=== PATIENT | female | born 1980 | race Caucasian/White ===

== ENCOUNTER 2020-07-27 15:02 | Emergency (ER) | payer OTHER ==
[~2020-07-27] VITALS: Ht 157.4 cm; Wt 124.3 kg
[~2020-07-27 15:02] MED LIST: ALBUTEROL 3 ML 33 ML INH; ALBUTEROL0.09 MG/A2 IH; ALBUTEROL2.5 MG/0.5 INH; ANIMAL CHEWS1 EACH PO; ATROVENT I0.5 MG/2.5 INH; AUGMENTIN 875 M1 TAB PO; BACTROBAN OINT22 GM PO; CEFTIN500 MG PO; CIPRO500 MG PO; COMBIVENT1 ARO IH; CYCLOBENZAPRINE10 MG PO; DELTASONE10 MG PO; DOXYCYCLINE100 M3 PO; DULE1ARO INH; DULE1ARO1 INH; DUONEB 3 MG/3 ML3 M1 INH; FLONASE0.05 MG/AC NS; FLOVENT 110 M110 MCG INH; HYDROCODONE BIT1 T11 PO; LEVAQUIN750 M1 PO; MEDROL DOSEPAK4 MG PO; Motrin,Rufen800 MG PO; NAPROSYN500 MG PO; NKHM; NORCO 325 MG-51 TAB PO; PREDNICOT10 MG PO; PREDNISONE10 MG PO; PREDNISONE20 MG PO; PREDNISONE50 MG PO; PROAIR HFA0.09 MG/AC INH; PROVENTIL0.09 MG/AC IH; SINGULAIR10 M1 PO; SINGULAIR10 MG PO; TRAMADOL HCL50 MG PO; TYLENOL325 M1 PO; VENTOLIN 02.5 MG/3 M INH; VENTOLIN H0.09 MG/AC INH; ZITHROMAX Z PA250 MG PO; ZITHROMAX250 MG PO
[2020-07-27] MEDS ORDERED: AUGMENTIN 875875 MG PO ×3 (15:48→16:00)
[2020-07-27] MEDS ORDERED: IBUPROFEN600 MG PO ×3 (15:48→16:00)
== END 2020-07-27 16:10 | disposition home or self-care (01) ==
LOC: ED 15:02
DX: K02.9 Dental caries, unspecified (principal); J45.909 Unspecified asthma, uncomplicated; Z91.048 Other nonmedicinal substance allergy status; Z79.899 Other long term (current) drug therapy; Z98.51 Tubal ligation status

== ENCOUNTER → 2020-08-19 | Outpatient (CLI) | payer OTHER ==
[~2020-08-19] MED LIST changes: +AUGMENTIN 875875 MG PO; +IBUPROFEN600 MG PO
== END | disposition home or self-care (01) ==
LOC: MAMMO 00:30
PROVIDERS: ATTEND Physician Assistant
DX: Z12.31 Encounter for screening mammogram for malignant neoplasm of breast (principal); N64.89 Other specified disorders of breast

== ENCOUNTER → 2020-09-02 | Outpatient (CLI) | payer OTHER | END | disposition home or self-care (01) | LOC: MAMMO 00:18 | PROVIDERS: ATTEND Physician Assistant | DX: R92.1 Mammographic calcification found on diagnostic imaging of breast (principal); R92.8 Other abnormal and inconclusive findings on diagnostic imaging of breast; N64.89 Other specified disorders of breast ==

== ENCOUNTER 2022-05-20 20:14 | Emergency (ER) | payer OTHER ==
[~2022-05-20] VITALS: Ht 160 cm; Wt 99.8 kg
[2022-05-20] MEDS ORDERED: PROVENTIL HFA6.7 GM DEVI (23:25)
[2022-05-20] MEDS ORDERED: PREDNISONE20 M1 PO (23:25)
== END 2022-05-20 23:50 | disposition home or self-care (01) ==
LOC: ED 20:14
DX: J45.909 Unspecified asthma, uncomplicated (principal); Z88.6 Allergy status to analgesic agent; Z91.048 Other nonmedicinal substance allergy status; Z79.2 Long term (current) use of antibiotics; Z79.899 Other long term (current) drug therapy; Z98.51 Tubal ligation status

== ENCOUNTER 2022-06-01 13:47 | Emergency (ER) | payer OTHER ==
[~2022-06-01] VITALS: Wt 99.8 kg
[~2022-06-01 13:47] MED LIST changes: +PREDNISONE20 M1 PO; +PROVENTIL HFA6.7 GM DEVI
[2022-06-01] MEDS ORDERED: PREDNISONE50 MG PO (14:13)
== END 2022-06-01 14:50 | disposition home or self-care (01) ==
LOC: ED 13:47
DX: J45.901 Unspecified asthma with (acute) exacerbation (principal); Z88.8 Allergy status to other drugs, medicaments and biological substances; Z98.51 Tubal ligation status

== ENCOUNTER 2023-07-26 00:09 | Emergency (ER) | payer OTHER ==
[~2023-07-26] VITALS: Ht 160 cm; Wt 72.6 kg
[2023-07-26 00:47] LABS: BASO % 0.4 % (0.0-1.0); EOS # 0.3 10*3/uL (0.0-0.4); HEMATOCRIT 42.1 % (37.0-47.0); LYMPH % 37.8 % (27.0-41.0); MEAN CELL VOLUME 91.9 fl (81.0-99.0); MEAN CORPUSCULAR HGB 30.1 pg (27.0-31.0); MEAN CORPUSCULAR HGB CONC 32.8 g/dl (33.0-37.0); MEAN PLATELET VOLUME 10.8 fl (9.6-12.3); MONO # 0.5 10*3/uL (0.1-1.0); MONO % 6.2 % (3.0-9.0); NEUT # 4.1 10*3/uL (2.3-7.9); NEUT % 51.5 % (47.0-73.0); PLATELET COUNT AUTOMATED 205 10*3/uL (130-400); RED BLOOD COUNT 4.58 10*6/uL (4.10-5.10); RED CELL DISTRI WIDTH 12.2 % (0-14.5)
[2023-07-26 00:59] LABS: ACT PARTIAL THROMBO TIME 30.7 SECONDS (20.0-32.1)
[2023-07-26 01:04] LABS: ALKALINE PHOSPHATASE 54 U/L (46-116); BUN 19 mg/dl (9-23); CHLORIDE 108 mmol/L (98-107); LIPASE 42 U/L (12-53); POTASSIUM 3.9 mmol/L (3.4-5.1); SGPT/ALT 10 U/L (5-49); TOTAL PROTEIN 7.1 gm/dL (6.0-8.0)
[2023-07-26] MEDS ORDERED: PREDNISONE50 MG PO (01:54)
== END 2023-07-26 01:59 | disposition home or self-care (01) ==
LOC: ED 00:09
PROVIDERS: Internal Medicine
DX: J45.901 Unspecified asthma with (acute) exacerbation (principal); Z98.51 Tubal ligation status

== ENCOUNTER 2024-08-04 19:08 | Emergency (ER) | payer OTHER ==
[~2024-08-04] VITALS: Ht 160 cm; Wt 93.4 kg
[2024-08-04] MEDS ORDERED: Albuterol Sulf/Ipratropium 3 ML VIAL NEB ONE (19:45)
[2024-08-04] MEDS ORDERED: methylPREDNISolone sod succ 125 MG VIAL IV ONE (19:45)
[2024-08-04] MEDS ORDERED: MEDROL DOSEPAK4 MG PO (21:20)
[2024-08-04] MEDS ORDERED: AVPAK AZITHROM250 MG PO (21:20)
== END 2024-08-04 21:30 | disposition home or self-care (01) ==
LOC: ED 19:08
DX: J18.9 Pneumonia, unspecified organism (principal); J45.901 Unspecified asthma with (acute) exacerbation; Z79.899 Other long term (current) drug therapy

== ENCOUNTER 2025-03-14 12:02 | Emergency (ER) | payer OTHER ==
[~2025-03-14] VITALS: Ht 157.4 cm; Wt 99.3 kg
[~2025-03-14 12:02] MED LIST changes: +AVPAK AZITHROM250 MG PO
[2025-03-14] MEDS ORDERED: Acetaminophen/Oxycodone 5 MG/325 MG TABLET PO ONE (12:25)
[2025-03-14] MEDS ORDERED: Ondansetron Hydrochloride 4 MG TAB PO ONE (12:25)
[2025-03-14] MEDS ORDERED: NAPROSYN500 MG PO (13:49)
[2025-03-14] MEDS ORDERED: TRAMADOL HCL50 MG PO (13:49)
== END 2025-03-14 13:43 | disposition home or self-care (01) ==
LOC: ED 12:02
DX: S93.401A Sprain of unspecified ligament of right ankle, initial encounter (principal); J45.909 Unspecified asthma, uncomplicated; Z79.899 Other long term (current) drug therapy; Z98.51 Tubal ligation status; W01.0XXA Fall on same level from slipping, tripping and stumbling without subsequent striking against object, initial encounter; Y93.89 Activity, other specified; Y92.89 Other specified places as the place of occurrence of the external cause; Y99.8 Other external cause status